=== PATIENT | female | born 1975 | race African-American/Black ===

== ENCOUNTER 2016-06-20 17:04 | Observation (INO) | payer BC, MEDICAID ==
[~2016-06-20] VITALS: Ht 165.1 cm; Wt 130.8 kg
[2016-06-20] VITALS (7 sets, daily range): BP systolic 140–177; BP diastolic 71–103; PULSE 85–97; RESP 16–18; TEMP 98.3; O2SAT 97–100
[~2016-06-20 17:04] MED LIST: ROBITUSSIN AC PO; ZITHTAB PO
--- NOTE | 2016-06-20 17:22 | PD ---
HPI Chief Complaint: Chest Pain Time Seen by Provider: 17:12 Travel History International Travel<30 days: No Contact w/Intl Traveler<30days: No Traveled to known affect area: No History of Present Illness HPI 41-year-old female here for evaluation of chest pain. The patient began expressing chest pain yesterday evening while at work. Pain initially was intermittent, moderate, worse with inspiration, described as sharp/pressure over mid chest, now more constant, still worse with inspiration, radiates to her right shoulder. She denies history of cardiac disease. Her father recently of a heart attack last week at the age of 64. She smokes about a pack of cigarettes per month. She had a DVT after a hysterectomy several years ago, not currently on anticoagulation. No fevers, chills, cough, or recent illness. No paresthesias or motor deficits. No dyspnea. PFSH Past Medical History Anemia: Yes Cancer: No Cardiovascular Problems: No Diabetes: No Diminished Hearing: No Diverticulitis: Yes Gastrointestinal Disorders: Yes Glaucoma: No Hepatitis: No Hiatal Hernia: No Hypertension: No Respiratory: No Thyroid Disease: No ?: Not Dilation and Curettage (D&C): Yes Past Surgical History Appendectomy: Yes Gynecologic Surgery: Yes (D&C, [facility] 03/10, HYSTERECTOMY) Hysterectomy: Yes Pacemaker: No Other Surgery: Yes Social History Alcohol Use: Yes (OCCASIONAL) Tobacco Use: No Substance Use: No Allergies-Medications (Allergen,Severity, Reaction): Coded Allergies: No Known Allergies (Verified , 04/23/16) Reported Meds & Prescriptions Reported Meds & Active Scripts Active [Robitussin Ac] 10 Ml PO Q6HR Zithromax Z-Geovanny (Azithromycin) 250 Mg Dspk 250 Mg PO DIRECTED 500 MG (2 tabs) day 1, then 1 tab days 2-5. Review of Systems Except as stated in HPI: all other systems reviewed are Neg Physical Exam Narrative GENERAL: Well-developed, well-nourished, comfortable, no acute distress. SKIN: Warm and dry. HEAD: Atraumatic. Normocephalic. EYES: Pupils equal and round. No scleral icterus. No injection or drainage. ENT: Mucous membranes pink and moist. NECK: Trachea midline. No JVD. CARDIOVASCULAR: Regular rate and rhythm. Distal pulses brisk and equal bilaterally. RESPIRATORY: No accessory muscle use. Clear to auscultation. Breath sounds equal bilaterally. GASTROINTESTINAL: Abdomen soft, non-tender, nondistended. MUSCULOSKELETAL: No obvious deformities. No clubbing. No cyanosis. No edema. NEUROLOGICAL: Awake and alert. No obvious cranial nerve deficits. Motor grossly within normal limits. Normal speech. PSYCHIATRIC: Appropriate mood and affect; insight and judgment normal. Data Data Last Documented VS Vital Signs Date Time Temp Pulse Resp B/P Pulse Ox O2 Delivery O2 Flow Rate FiO2 06/20/16 17:41 140/88 06/20/16 17:35 88 16 98 Room Air 06/20/16 17:08 98.3 Orders Basic Metabolic Panel (Bmp) (06/20/16 17:19) Ckmb (Isoenzyme) Profile (06/20/16 17:19) Complete Blood Count With Diff (06/20/16 17:19) D-Dimer (06/20/16 17:19) Magnesium (Mg) (06/20/16 17:19) Prothrombin Time / Inr (Pt) (06/20/16 17:19) Act Partial Throm Time (Ptt) (06/20/16 17:19) Troponin I (06/20/16 17:19) Chest, Single Ap (06/20/16 17:19) Ecg Monitoring (06/20/16 17:19) Bilateral Bp Monitoring (06/20/16 17:19) Iv Access Insert/Monitor (06/20/16 17:19) Oximetry (06/20/16 17:19) Oxygen Administration (06/20/16 17:19) Aspirin Chew (Aspirin Chew) (06/20/16 17:30) Sodium Chloride 0.9% Flush (Ns Flush) (06/20/16 17:30) Nitroglycerin Sl (Nitrostat Sl) (06/20/16 17:30) Beta Hcg (Quant/Titer) (06/20/16 17:19) Labs Laboratory Tests Test 06/20/16 17:25 White Blood Count 5.0 TH/MM3 Red Blood Count 4.64 MIL/MM3 Hemoglobin 13.1 GM/DL Hematocrit 39.6 % Mean Corpuscular Volume 85.5 FL Mean Corpuscular Hemoglobin 28.2 PG Mean Corpuscular Hemoglobin 33.0 % Concent Red Cell Distribution Width 12.8 % Platelet Count 265 TH/MM3 Mean Platelet Volume 8.8 FL Neutrophils (%) (Auto) 49.9 % Lymphocytes (%) (Auto) 40.8 % Monocytes (%) (Auto) 7.4 % Eosinophils (%) (Auto) 1.4 % Basophils (%) (Auto) 0.5 % Neutrophils # (Auto) 2.5 TH/MM3 Lymphocytes # (Auto) 2.0 TH/MM3 Monocytes # (Auto) 0.4 TH/MM3 Eosinophils # (Auto) 0.1 TH/MM3 Basophils # (Auto) 0.0 TH/MM3 CBC Comment DIFF FINAL Differential Comment Prothrombin Time 10.1 SEC Prothromb Time International 0.9 RATIO Ratio Activated Partial 24.3 SEC Thromboplast Time D-Dimer Quantitative (PE/DVT) 0.36 MG/L FEU Sodium Level 138 MEQ/L Potassium Level 3.5 MEQ/L Chloride Level 100 MEQ/L Carbon Dioxide Level 29.0 MEQ/L Anion Gap 9 MEQ/L Blood Urea Nitrogen 8 MG/DL Creatinine 0.82 MG/DL Estimat Glomerular Filtration 93 ML/MIN Rate Random Glucose 275 MG/DL Calcium Level 8.7 MG/DL Magnesium Level 2.0 MG/DL Total Creatine Kinase 70 U/L Troponin I LESS THAN 0.02 NG/ML Human Chorionic Gonadotropin, LESS THAN 1 Quant MIU/ML MDM Medical Decision Making Medical Screen Exam Complete: Yes Emergency Medical Condition: Yes Medical Record Reviewed: Yes Interpretation(s) EKG: Sinus, rate 92, normal axis, normal intervals, no acute ischemic abnormality. Differential Diagnosis ACS, pneumothorax, pericarditis, PE, pneumonia, dissection Narrative Course Initial vital signs show heart rate 94, blood pressure 152/103, pulse ox 99% on room air, oral temp of 98.3F. CBC is unremarkable. BMP is remarkable for random glucose 275, otherwise unremarkable. The patient reports that she drank a sweet tea prior to arrival. Cardiac enzymes are negative. HCG is negative. D-dimer 0.36. Chest x-ray shows no acute disease. The patient was made aware of all findings. She is resting comfortably. After receiving nitroglycerin she reports having a headache and moderate improvement in chest pain. I believe the patient is a good candidate for further cardiac evaluation in the chest pain center. She is amenable to this plan. Case discussed with hospitalist Dr. Ro who will admit the patient to her service. Diagnosis Primary Impression: Chest pain Qualified Code: R07.9 - Chest pain, unspecified type Additional Impression: Hyperglycemia Admitting Information Admitting Physician Requests: Observation Jairo Drake MD Jun 20, 2016 17:22
[2016-06-20] MEDS ORDERED: SODIUM CHLORIDE 0.9% FLUSH 5 ML FLUSH IVF PRN ×2 (17:30→18:30)
[2016-06-20] MEDS ORDERED: ASPIRIN 81 MG CHEW TAB PO ONE (17:30)
[2016-06-20] MEDS: NITROGLYCERIN 0.4 MG SL 25 TABS/BTL SL SCH ×3 (17:32→17:40)
--- NOTE | 2016-06-20 17:46 | RADHPO ---
EXAM DATE/TIME: 06/20/2016 17:40 [facility] COMPARISON: No previous studies available for comparison. INDICATIONS : Patient states chest pains that started yesterday. MEDICAL HISTORY : None. SURGICAL HISTORY : None. ENCOUNTER: Initial ACUITY: 2 days PAIN SCORE: 10/10 LOCATION: Bilateral chest FINDINGS: A single view of the chest demonstrates the lungs to be symmetrically aerated without evidence of mas s, infiltrate or effusion. The cardiomediastinal contours are unremarkable. Osseous structures are intact. CONCLUSION: No acute disease. Aaron Alvarez MD on June 20, 2016 at 17:43 Board Certified Radiologist. This report was verified electronically.
[2016-06-20 17:51] LABS: CHLORIDE 100 MEQ/L (98-107); POTASSIUM 3.5 MEQ/L (3.5-5.1); SODIUM (NA) 138 MEQ/L (136-145)
[2016-06-20 17:54] LABS: HEMATOCRIT 39.6 % (35.0-46.0); HEMO FLAGS DIFF FINAL; MEAN CELL VOLUME 85.5 FL (80.0-100.0); MEAN CORPUSCULAR HEMOGLOBIN 28.2 PG (27.0-34.0); NEUT % 49.9 % (16.0-70.0); PLATELET COUNT 265 TH/MM3 (150-450); RED BLOOD COUNT 4.64 MIL/MM3 (4.00-5.30); RED CELL DISTRIBUTION WIDTH 12.8 % (11.6-17.2)
[2016-06-20 17:55] LABS: AUTOMATED NEUTROPHIL # 2.5 TH/MM3 (1.8-7.7); BASOPHIL % 0.5 % (0.0-2.0); EOSINOPHIL # 0.1 TH/MM3 (0-0.4); EOSINOPHIL % 1.4 % (0.0-4.0); LYMPH % 40.8 % (9.0-44.0); MONO % 7.4 % (0.0-8.0)
[2016-06-20 17:56] LABS: ANION GAP 9 MEQ/L (5-15); BLOOD UREA NITROGEN 8 MG/DL (7-18)
[2016-06-20 17:59] LABS: GLOMERULAR FILTRATION RATE 93 ML/MIN (>89)
[2016-06-20 18:03] LABS: APTT (PATIENT) 24.3 SEC (24.3-30.1); INTERNATIONAL NORMALIZED RATIO 0.9 RATIO; PROTHROMBIN TIME - PATIENT 10.1 SEC (9.8-11.6)
[2016-06-20 18:04] LABS: BETA HCG QUANT LESS THAN 1 MIU/ML (0-5)
[2016-06-20 18:06] LABS: CREATINE KINASE 70 U/L (26-192)
[2016-06-20] MEDS ORDERED: ACETAMINOPHEN 500 MG CPLT PO PRN (18:30)
[2016-06-20] MEDS: MORPHINE SULFATE 4 MG/ML INJ IV PRN (19:37)
[2016-06-20] MEDS: SODIUM CHLORIDE 0.9% FLUSH 5 ML FLUSH IVF SCH (21:00)
[2016-06-20 22:09] LABS: CREATINE KINASE 64 U/L (26-192)
[2016-06-21] VITALS (12 sets, daily range): BP systolic 135–170; BP diastolic 68–94; PULSE 71–92; RESP 16–20; TEMP 96.9–98.4; O2SAT 96–100
[2016-06-21 01:43] LABS: CREATINE KINASE 61 U/L (26-192)
[2016-06-21] MEDS: MORPHINE SULFATE 4 MG/ML INJ IV PRN ×4 (02:43→16:11)
[2016-06-21] MEDS: SODIUM CHLORIDE 0.9% FLUSH 5 ML FLUSH IVF SCH ×2 (07:37→21:00)
[2016-06-21] MEDS: ASPIRIN 325 MG TAB PO SCH (08:04)
--- NOTE | 2016-06-21 08:49 | HHI.HP ---
[facility] Primary [facility] Physician No Primary Care Physician Admission Diagnosis chest pain, hyperglycemia Diagnoses: (1) Atypical chest pain Diagnosis: Principal (2) Elevated random blood glucose level Diagnosis: Principal Chief Complaint: chest pain Travel History International Travel<30 Days: No Contact w/Intl Traveler <30 Da: No Traveled to Known Affected Are: No History of Present Illness 41-year-old -Chinese female with history of anemia and diverticulitis presents with complaint of chest pain. Patient states chest pain started Monday night when she was at work. 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 She states she brushed it off and went home Monday morning and slept but then started to experience pain over the left chest which shot across to the right side. Patient describes the pain as "stabbing and burning". She states the pain is currently a 5-6/10 but states it was a 15/10 on arrival. States morphine helped alleviate the pain. She states the pain is worse with deep breaths and when sitting up and feels better when she is lying down. Painr adiates to both shoulders. She denies any associated diaphoresis, numbness or tingling, or shortness of breath. She relieved nitroglycerin but states she got a headache and chest tightening after it is unsure if it helped. She denies any fevers or chills, recent cold or cough symptoms. Denies any abdominal pain, nausea, vomiting, diarrhea. Patient denies any injury including lifting patients. Review of Systems Constitutional: DENIES: Fever, Chills, Dizziness Eyes: DENIES: Blurred vision Ears, nose, mouth, throat: DENIES: Throat pain, Ear Pain, Running Nose Respiratory: DENIES: Cough, Shortness of breath Cardiovascular: COMPLAINS OF: Chest pain Gastrointestinal: DENIES: Abdominal pain, Black stools, Bloody stools, Diarrhea , Nausea, Vomiting Genitourinary: DENIES: Dysuria Musculoskeletal: COMPLAINS OF: Joint pain (pain radiates to shoulders), Back pain Integumentary: DENIES: Rash Neurologic: COMPLAINS OF: Headache, DENIES: Paresthesias Past Family Social History Past Medical History Anemia Diverticulitis Past Surgical History Total hysterectomy 7 years ago D&C Reported Medications None Allergies: Coded Allergies: No Known Allergies (Verified , 04/23/16) Family History Father: of [place] last week at the age of 64 after being hospitalized for ruptured appendix; h/o stroke with residual right arm paralysis, several TIAs, DM. Mother: Breast cancer, at age of 56. 2 sisters and 1 brother: Diabetes Social History Occasional alcohol use. Denies history of tobacco use. Denies history of illicit drug use. Physical Exam Vital Signs Vital Signs Date Time Temp Pulse Resp B/P Pulse Ox O2 Delivery O2 Flow Rate FiO2 06/21/16 08:04 18 06/21/16 07:15 89 16 98 Room Air 06/21/16 07:05 98.4 89 16 150/86 98 Room Air 06/21/16 05:15 Room Air 21 06/21/16 05:15 90 18 148/68 96 Room Air 06/21/16 03:03 92 18 140/70 100 Room Air 06/21/16 00:47 98 21 06/20/16 23:18 97 18 144/71 99 Room Air 06/20/16 21:43 87 18 100 Room Air 06/20/16 21:40 92 18 177/98 100 Room Air 06/20/16 19:55 85 18 163/94 100 Room Air 06/20/16 19:33 18 06/20/16 17:41 140/88 06/20/16 17:35 88 16 98 Room Air 06/20/16 17:33 97 Room Air 06/20/16 17:33 97 06/20/16 17:30 89 162/81 06/20/16 17:08 98.3 94 16 152/103 99 Physical Exam GENERAL: BMI 48.1. This is a well-developed patient, in no apparent distress. SKIN: No rashes, ecchymoses or lesions. Warm and dry. HEAD: Atraumatic. Normocephalic. EYES: No scleral icterus. No injection or drainage. CHEST: Reproducible tenderness over L upper anterior chest. CARDIOVASCULAR: Regular rate and rhythm without murmurs, gallops, or rubs. RESPIRATORY: Clear to auscultation. Breath sounds equal bilaterally. No wheezes , rales, or rhonchi. GASTROINTESTINAL: Abdomen soft, non-tender, nondistended. No guarding. MUSCULOSKELETAL: No lower extremity edema bilaterally. No calf pain bilaterally. NEUROLOGICAL: Awake and alert. Motor grossly within normal limits. Five out of 5 muscle strength in bilateral arms and legs. Normal speech. PSYCHIATRIC: Normal mood and affect. Normal insight and judgement. Laboratory Laboratory Tests Test 06/20/16 06/20/16 06/21/16 17:25 21:27 01:04 White Blood Count 5.0 Red Blood Count 4.64 Hemoglobin 13.1 Hematocrit 39.6 Mean Corpuscular Volume 85.5 Mean Corpuscular Hemoglobin 28.2 Mean Corpuscular Hemoglobin 33.0 Concent Red Cell Distribution Width 12.8 Platelet Count 265 Mean Platelet Volume 8.8 Neutrophils (%) (Auto) 49.9 Lymphocytes (%) (Auto) 40.8 Monocytes (%) (Auto) 7.4 Eosinophils (%) (Auto) 1.4 Basophils (%) (Auto) 0.5 Neutrophils # (Auto) 2.5 Lymphocytes # (Auto) 2.0 Monocytes # (Auto) 0.4 Eosinophils # (Auto) 0.1 Basophils # (Auto) 0.0 CBC Comment DIFF FINAL Differential Comment Prothrombin Time 10.1 Prothromb Time International 0.9 Ratio Activated Partial 24.3 Thromboplast Time D-Dimer Quantitative (PE/DVT) 0.36 Sodium Level 138 Potassium Level 3.5 Chloride Level 100 Carbon Dioxide Level 29.0 Anion Gap 9 Blood Urea Nitrogen 8 Creatinine 0.82 Estimat Glomerular Filtration 93 Rate Random Glucose 275 Calcium Level 8.7 Magnesium Level 2.0 Total Creatine Kinase 70 64 61 Troponin I LESS THAN 0.02 LESS THAN 0.02 LESS THAN 0.02 Human Chorionic Gonadotropin, LESS THAN 1 Quant Result Diagram: 06/20/16 1725 06/20/16 1725 Imaging Last Impressions Chest X-Ray 06/20/16 1719 Signed Impressions: Service Date/Time: Monday, June 20, 2016 17:40 - CONCLUSION: No acute disease. Aaron Alvarez MD Assessment and Plan Assessment and Plan 41-year-old -Chinese female with: Atypical chest pain: Started the night before last, stabbing and burning sensation, pleuritic, but better with lying down. Chest x-ray personally interpreted with no acute disease. Troponin 3 less than 0.02. CK 3 normal. EKGs 3 personally interpreted with flattened T waves in lead III, but normal sinus rhythm and no evidence of ischemia. D-dimer negative. CBC unremarkable. -Patient received 324 mg aspirin at 1730 and received one dose of nitroglycerin SL in ED. -Patient has significant reproducible tenderness over the left chest similar to what she was feeling, likely musculoskeletal, but patient is obese with family history of heart disease. Dr. Ro informed. Stress testing was explained to the patient and although she is overweight and inactive, she would like to try the treadmill test and she feels she can safely perform this. Patient was informed that if she is unable to complete this test she will be transitioned to a nuclear stress test. ETT ordered. -Continue 325 mg daily aspirin -Nitro/morphine prn chest pain -ETT is borderline, reviewed by [facility] needle punch machine operator Dr. Scherer, states to consider Lexiscan which has been ordered. When I went back to reevaluate the patient at ~1230 she states her chest pain is now a 20/10. The nurse has administered morphine. Patient refuses nitroglycerin. 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 Patient does not have a PCP currently, last saw one 1 year ago. -Hemoglobin A1c ordered-->10.6. Patient has diabetes. -Consult clinical nurse educator -Patient advised on diet and exercise -Bedside Accu-checks and low dose SSI while hospitalized. Hold SSI if BGL <200 as patient is NPO. -Will need to start the patient on medication at discharge. DVT prevention: early ambulation Discussed Condition With patient Attending Statement The exam, history, and the medical decision-making described in the above note were completed with the assistance of the mid-level provider. I reviewed and agree with the findings presented. I attest that I had a [id number] encounter with the patient on the same day, and personally performed and documented my assessment and findings in the medical record. Mishel Kramer Jun 21, 2016 08:49 Perla Ro MD Jun 21, 2016 16:39
[2016-06-21 12:09] LABS: HEMOGLOBIN A1a 0.9 %; HEMOGLOBIN A1b 0.8 %; HEMOGLOBIN Ao 48.6 %; HEMOGLOBIN F 1.4 %; HEMOGLOBIN LA1C 1.9 %; HEMOGLOBIN P3 3.1 %
[2016-06-21] MEDS ORDERED: DEXTROSE 50% IN WATER 50 ML VIAL(D50) IV PUSH PRN (12:30)
[2016-06-21] MEDS ORDERED: GLUCAGON 1 MG/ML VIAL OTHER PRN (12:30)
[2016-06-21] MEDS ORDERED: REGADENOSON INJ 0.4 MG/5 ML SYR IV ONE (15:06)
--- NOTE | 2016-06-21 15:54 | RADHPO ---
EXAM DATE/TIME: 06/21/2016 14:41 [facility] COMPARISON: No previous studies available for comparison. INDICATIONS : Left sided chest pain for one day. Abnormal exercise treadmill test. DOSE: 35.0 mCi Tc99m Myoview at stress. 10.9 mCi Tc99m Myoview at rest. 0.4 mg Lexiscan STRESS SYMPTOMS: None. EJECTION FRACTION: 55% MEDICAL HISTORY : Diverticulitis. SURGICAL HISTORY : Hysterectomy. ENCOUNTER: Initial ACUITY: 1 day PAIN SCALE: 6/10 LOCATION: Left chest TECHNIQUE: The patient underwent pharmacologic stress with infusion of prescribed dose. Continuous ECG tracing was monitored during stress. Gated SPECT imaging was performed after stress and conventional SPECT i maging was performed at rest. The examination was performed on a SPECT/CT scanner, both attenuation and non-corrected datasets were reviewed. FINDINGS: DISTRIBUTION: The maximum perfused segment at stress is in the lateral wall near the apex. PERFUSION STUDY: There is 20% redistribution on the rest images within the lateral wall near the base. The remaining b y distribution is within normal range. GATED STUDY: There is intact wall motion and thickening without hypokinetic or dyskinetic segments. CONCLUSION: 20% redistribution involving the lateral wall near the base. I cannot exclude an area of acute ischem ia. RISK CATEGORY: Intermediate Curt Kamara Jr., MD on June 21, 2016 at 15:42 Board Certified Radiologist. This report was verified electronically.
[2016-06-21] MEDS: INSULIN ASPART SUPPLEMENTAL SCALE SQ SCH ×2 (16:45→21:14)
[2016-06-21] MEDS ORDERED: IOHEXOL 350 MG/ML 10 ML VIAL (for RAD DIAG) IV ONE (17:23)
--- NOTE | 2016-06-21 17:52 | RADHPO ---
EXAM DATE/TIME: 06/21/2016 17:04 [facility] COMPARISON: No previous studies available for comparison. INDICATIONS : Evaluate for aortic dissection. Chest pain. IV CONTRAST: 100 cc Omnipaque 350 (iohexol) IV RADIATION DOSE: 22.50 CTDIvol (mGy) MEDICAL HISTORY : Diverticulitis. SURGICAL HISTORY : Appendectomy. Hysterectomy. ENCOUNTER: Initial ACUITY: 2 days PAIN SCALE: 8/10 LOCATION: Bilateral chest TECHNIQUE: Volumetric scanning was performed using a multi-row detector CT scanner. The data was post processed with a variety of visualization algorithms including full volume maximum intensity projection, multi -planar sliding thin slab reformation, curved planar reformation, and surface rendering techniques. Using automated exposure control and adjustment of the mA and/or kV according to patient size, radiat ion dose was kept as low as reasonably achievable to obtain optimal diagnostic quality images. FINDINGS: Thoracic/abdominal aorta: The aorta is normal in caliber and course. No aneurysmal change. No dissection. No hematoma. Heart and mediastinum: The heart is normal in size. No pericardial effusion. Aorta and pulmonary arteries are normal in bartolo jeannine. No adenopathy. Lung parenchyma: Lungs are clear. No mass, infiltrate, or effusion. Other structures: Scattered colonic diverticuli. No acute inflammation observed. The liver is diffusely low in attenuat ion. Remaining visceral structures are unremarkable. A 4 cm low-density mass is seen involving the ri ght lobe of the thyroid. Left lobe is unremarkable. CONCLUSION: 1. No dissection. 2. 4 cm right thyroid nodule. This can be further assessed with an outpatient ultrasound of the thyro id. 3. Hepatic steatosis. 4. Colonic diverticulosis. Curt Kamara Jr., MD on June 21, 2016 at 17:46 Board Certified Radiologist. This report was verified electronically.
[2016-06-21] MEDS: SODIUM CHLOR 0.9% 1000 ML INJ 1,000 ML IV SCH (17:54)
[2016-06-21] MEDS ORDERED: NALOXONE HCL 0.4 MG/ML AMP IV PRN (19:15)
[2016-06-21] MEDS: ACETAMINOPHEN/HYDROcodone 325 MG/7.5 MG TAB PO PRN (21:18)
[2016-06-21] MEDS ORDERED: MORPHINE SULFATE 4 MG/ML INJ IV PRN (22:30)
[2016-06-22] VITALS (18 sets, daily range): BP systolic 104–145; BP diastolic 59–97; PULSE 64–103; RESP 17–20; TEMP 96.1–98; O2SAT 97–100
[2016-06-22] MEDS: NITROGLYCERIN 0.4 MG SL 25 TABS/BTL SL PRN ×2 (00:31→00:37)
[2016-06-22] MEDS: INSULIN ASPART SUPPLEMENTAL SCALE SQ SCH ×4 (06:18→20:32)
[2016-06-22] MEDS: SODIUM CHLOR 0.9% 1000 ML INJ 1,000 ML IV SCH ×2 (06:19→16:50)
[2016-06-22 06:25] LABS: HEMATOCRIT 35.5 % (35.0-46.0); MEAN CELL VOLUME 84.9 FL (80.0-100.0); MEAN CORPUSCULAR HEMOGLOBIN 29.1 PG (27.0-34.0); MEAN CORPUSCULAR HGB CONC 34.2 % (32.0-36.0); PLATELET COUNT 240 TH/MM3 (150-450); RED BLOOD COUNT 4.18 MIL/MM3 (4.00-5.30); RED CELL DISTRIBUTION WIDTH 12.6 % (11.6-17.2); REVIEW FLAG FINAL; WHITE BLOOD COUNT 5.8 TH/MM3 (4.0-11.0)
[2016-06-22 06:41] LABS: POTASSIUM 3.9 MEQ/L (3.5-5.1)
[2016-06-22 06:46] LABS: BICARBONATE 28.2 MEQ/L (21.0-32.0)
[2016-06-22] MEDS ORDERED: SODIUM CHLOR 0.9% 1000 ML INJ 1,000 ML IV SCH ×2 (07:42→13:31)
--- NOTE | 2016-06-22 07:47 | PD.CONS ---
HPI Service CV Consult Requested By Reason for Consult chest pain Primary Care Physician No Primary Care Physician History of Present Illness Here with recent diagnosis of type 2 diabetes for chest pain. This started Monday night at work. It has been waxing and waning since then. It is sharp stabbing precordial pain. There are no associates symptoms. It does not radiate. IT was relieved last night with SL NTG X 2. She has also had recent stressor with her father passing away. She is a never smoker and has no family h /o premature cardiac disease (Evin Walsh) Review of Systems Consitutional: DENIES: Fatigue, Fever, Chills, Weight gain, Weight loss Eyes: DENIES: Amaurosis Fugax, Change in vision HEENT: DENIES: Lightheadedness, Change in hearing Respiratory: DENIES: See HPI, Cough, Snoring, Shortness of breath, Wheezing, Sputum production Cardiovascular: COMPLAINS OF: See HPI Gastrointestinal: DENIES: Nausea, Vomiting, Change in bowel habits, Reflux, Bloody stools, Melena Genitourinary: DENIES: Urinary incontinence, Difficulty voiding Integumentary: DENIES: Rash Neurologic: DENIES: Tingling or numbness, Memory problems, Poor Balance, Stroke symptoms Musculoskeletal: DENIES: Joint pain, Muscle pain, Limited range of motion, Back pain Psychiatric: DENIES: Anxiety, Depression, Sleep disturbances Hematologic: DENIES: Bruising tendencies, Bleeding tendencies Endocrine: DENIES: Weight gain, Weight loss, Thyroid disease (Evin Walsh ) Past Family Social History Allergies: Coded Allergies: No Known Allergies (Verified , 04/23/16) Past Medical History See HPI h/o diverticulitis Past Surgical History hysterectomy appendectomy Reported Medications Reported Meds & Active Scripts Active [Robitussin Ac] 10 Ml PO Q6HR Zithromax Z-Geovanny (Azithromycin) 250 Mg Dspk 250 Mg PO DIRECTED 500 MG (2 tabs) day 1, then 1 tab days 2-5. Active Ordered Medications Current Medications Medications (Trade) Dose Ordered Sig/Kapil Route Start Time Stop Time Status Last Admin (NS Flush) 2 ml UNSCH PRN IVF 06/20/16 18:30 (NS Flush) 2 ml BID IVF 06/20/16 21:00 06/21/16 07:37 (Tylenol) 500 mg Q4H PRN PO 06/20/16 18:30 06/22/16 06:24 (Nitrostat Sl) 0.4 mg Q5M PRN SL 06/20/16 18:30 06/22/16 00:37 (Aspirin) 325 mg DAILY PO 06/21/16 09:00 06/21/16 08:04 (D50w (Vial) Inj) 25 ml UNSCH PRN IV PUSH 06/21/16 12:30 Glucagon 1 mg 1 mg UNSCH PRN OTHER 06/21/16 12:30 (NS 1000 ml Inj) 1,000 ml @ 84 mls/hr [id number] IV 06/21/16 17:00 06/22/16 06:19 (Morphine Inj) 4 mg Q4H PRN IV 06/21/16 22:30 ([place] 7.5-325 Mg) 1 tab Q4H PRN PO 06/21/16 19:15 06/21/16 21:18 (Narcan Inj) 0.4 mg UNSCH PRN IV 06/21/16 19:15 Family History noncontributory Social History see HPI denies alcohol or substance abuse (Evin Walsh) Physical Exam Vital Signs Vital Signs Date Time Temp Pulse Resp B/P Pulse Ox O2 Delivery O2 Flow Rate FiO2 06/22/16 04:00 96.1 70 20 104/59 97 06/22/16 00:42 87 122/83 06/22/16 00:37 86 130/86 06/22/16 00:31 77 139/83 06/21/16 23:00 84 06/21/16 20:56 97 21 06/21/16 20:01 91 06/21/16 20:00 97.1 86 18 151/94 97 06/21/16 16:46 18 06/21/16 16:38 97 21 06/21/16 16:30 71 06/21/16 12:00 96.9 77 20 135/75 97 06/21/16 08:00 97.3 83 20 170/91 98 Physical Exam GENERAL: Well-nourished, well-developed patient in no apparent distress. NECK: No JVD. No carotid bruit. CARDIOVASCULAR: Regular rate and rhythm. S1/S2 no murmur, rub, or gallop. RESPIRATORY: No accessory muscle use. Clear to auscultation. Breath sounds equal bilaterally. GASTROINTESTINAL: Abdomen soft, non-tender, nondistended. MUSCULOSKELETAL: Extremities without clubbing, cyanosis, or edema. Laboratory Laboratory Tests Test 06/21/16 06/22/16 08:00 06:00 Hemoglobin A1c 10.6 White Blood Count 5.8 Red Blood Count 4.18 Hemoglobin 12.1 Hematocrit 35.5 Mean Corpuscular Volume 84.9 Mean Corpuscular Hemoglobin 29.1 Mean Corpuscular Hemoglobin 34.2 Concent Red Cell Distribution Width 12.6 Platelet Count 240 Mean Platelet Volume 8.4 Sodium Level 140 Potassium Level 3.9 Chloride Level 103 Carbon Dioxide Level 28.2 Anion Gap 9 Blood Urea Nitrogen 11 Creatinine 0.68 Estimat Glomerular Filtration 116 Rate Random Glucose 244 Calcium Level 8.5 (Evin Walsh) Result Diagram: 06/22/16 0600 06/22/16 0600 Assessment and Plan Problem List: (1) Chest pain Assessment and Plan Her chest pain is atypical yet with relief with NTG and abnormal SPECT we will proceed with coronary angiogram and go from there. Start ASA, statin, BB, BUD-I as tolerated. No BUD-I or BB for now with hypotension (Evin Walsh) Assessment and Plan continued chest pain symptoms relieved with NTG. stress test high risk study. CTA negative d-dimer negative despite age, her symptoms and stress test will require us to pursue coronary angiography. transfer to [facility]. NPO (Luigi Bragg MD) Problem Qualifiers (1) Chest pain: Qualified Code: R07.9 - Chest pain, unspecified type Evin Walsh Jun 22, 2016 07:47 Luigi Bragg MD Jun 22, 2016 07:57
[2016-06-22] MEDS: ASPIRIN 325 MG TAB PO SCH (07:55)
[2016-06-22] MEDS: SODIUM CHLORIDE 0.9% FLUSH 5 ML FLUSH IVF SCH ×2 (07:55→20:33)
[2016-06-22 08:04] LABS: TOTAL BILIRUBIN ADULT 0.5 MG/DL (0.2-1.0)
[2016-06-22 08:06] LABS: INDIRECT BILIRUBIN 0.4 MG/DL (0.0-0.8)
[2016-06-22 09:46] LABS: HDL CHOLESTEROL 36.8 MG/DL (40.0-60.0)
[2016-06-22] MEDS: ATORVASTATIN 40 MG TAB PO SCH (10:22)
[2016-06-22] MEDS ORDERED: HEPARIN-NS/PF INJ 500 ML ONE (12:42)
[2016-06-22] MEDS ORDERED: HEPARIN SODIUM - IV 10,000 UNITS/10 ML VIAL ONE (12:43)
[2016-06-22] MEDS ORDERED: MIDAZOLAM HCL 2 MG/2 ML VIAL ONE (12:43)
[2016-06-22] MEDS ORDERED: IOHEXOL 350 MG/ML 50 ML BTL (for Cath Lab) OTHER ONE (13:30)
[2016-06-22] MEDS ORDERED: BACITRACIN OINT 0.9 GM PKT TOP ONE (13:45)
[2016-06-22] MEDS ORDERED: MISC INFORMATION XX ONE (13:45)
--- NOTE | 2016-06-22 16:00 | TR ---
Date Performed: 06/21/2016 Time Performed: 14:48:27 DOCTOR: Laurent Mercado DRUG LIST: CLINICAL HISTORY: CHEST PAIN ABNORMAL ETT REASON FOR TEST: ABNORMAL ETT REASON FOR ENDING: OBSERVATION: CONCLUSION: Lexiscan stress test was performed under standard four minute protocol. Radionucl[place] e was injected one minute prior to ending the test. No electrocardiographic abormalities were present to suggest ischemia. Nuclear imaging and interpretation are pending. COMMENTS:
--- NOTE | 2016-06-22 16:17 | HHI.PR ---
Subjective Remarks Patient denies cp/sob had cardiac cath stable vital signs Blood sugar noted to be very elevated Objective Vitals Vital Signs Date Time Temp Pulse Resp B/P Pulse Ox O2 Delivery O2 Flow Rate FiO2 06/22/16 16:05 103 06/22/16 15:30 97 06/22/16 15:30 98.0 82 18 143/68 97 06/22/16 14:25 76 06/22/16 12:02 81 06/22/16 11:42 70 06/22/16 11:42 97.7 72 18 120/64 100 06/22/16 08:00 96.4 77 20 139/92 97 06/22/16 04:00 96.1 70 20 104/59 97 06/22/16 00:42 87 122/83 06/22/16 00:37 86 130/86 06/22/16 00:31 77 139/83 06/21/16 23:00 84 06/21/16 20:56 97 21 06/21/16 20:01 91 06/21/16 20:00 97.1 86 18 151/94 97 06/21/16 16:46 18 06/21/16 16:38 97 21 06/21/16 16:30 71 I/O 06/21/16 06/21/16 06/21/16 06/22/16 06/22/16 06/22/16 07:00 15:00 23:00 07:00 15:00 23:00 Intake Total 0 ml 521 ml 578 ml Balance 0 ml 521 ml 578 ml Intake Oral 0 ml 240 ml IV Total 281 ml 578 ml # Voids 4 3 # Bowel Movements 2 Result Diagram: 06/22/16 0600 06/22/16 0600 Imaging Last Impressions Aorta CTA 06/21/16 1625 Signed Impressions: Service Date/Time: Tuesday, June 21, 2016 17:04 - CONCLUSION: 1. No dissection. 2. 4 cm right thyroid nodule. This can be further assessed with an outpatient ultrasound of the thyroid. 3. Hepatic steatosis. 4. Colonic diverticulosis. Curt Kamara Jr., MD Myocardial Perfusion Scan Nuc Med 06/21/16 1219 Signed Impressions: Service Date/Time: Tuesday, June 21, 2016 14:41 - CONCLUSION: 20%% redistribution involving the lateral wall near the base. I cannot exclude an area of acute ischemia. RISK CATEGORY: Intermediate Curt Kamara Jr., MD Chest X-Ray 06/20/16 171 Signed Impressions: Service Date/Time: Monday, June 20, 2016 17:40 - CONCLUSION: No acute disease. Aaron Alvarez MD Objective Remarks GENERAL: BMI 48.1. This is a well-developed patient, in no apparent distress. SKIN: No rashes, ecchymoses or lesions. Warm and dry. HEAD: Atraumatic. Normocephalic. EYES: No scleral icterus. No injection or drainage. CHEST: Reproducible tenderness over L upper anterior chest. CARDIOVASCULAR: Regular rate and rhythm without murmurs, gallops, or rubs. RESPIRATORY: Clear to auscultation. Breath sounds equal bilaterally. No wheezes , rales, or rhonchi. GASTROINTESTINAL: Abdomen soft, non-tender, nondistended. No guarding. obese abdomen. MUSCULOSKELETAL: No lower extremity edema bilaterally. No calf pain bilaterally. NEUROLOGICAL: Awake and alert. Motor grossly within normal limits. Five out of 5 muscle strength in bilateral arms and legs. Normal speech. PSYCHIATRIC: Normal mood and affect. Normal insight and judgement. Procedures Cardiac catheterization on 06/22/16 Medications and IVs Current Medications Medications (Trade) Dose Ordered Sig/Kapil Route Start Time Stop Time Status Last Admin (NS Flush) 2 ml UNSCH PRN IVF 06/20/16 18:30 (NS Flush) 2 ml BID IVF 06/20/16 21:00 06/21/16 07:37 (Tylenol) 500 mg Q4H PRN PO 06/20/16 18:30 06/22/16 06:24 (Nitrostat Sl) 0.4 mg Q5M PRN SL 06/20/16 18:30 06/22/16 00:37 (Aspirin) 325 mg DAILY PO 06/21/16 09:00 06/22/16 07:55 (D50w (Vial) Inj) 25 ml UNSCH PRN IV PUSH 06/21/16 12:30 Glucagon 1 mg 1 mg UNSCH PRN OTHER 06/21/16 12:30 (NS 1000 ml Inj) 1,000 ml @ 84 mls/hr [id number] IV 06/21/16 17:00 06/22/16 06:19 (Morphine Inj) 4 mg Q4H PRN IV 06/21/16 22:30 ([place] 7.5-325 Mg) 1 tab Q4H PRN PO 06/21/16 19:15 06/21/16 21:18 (Narcan Inj) 0.4 mg UNSCH PRN IV 06/21/16 19:15 Atorvastatin Calcium 40 mg 40 mg DAILY PO 06/22/16 09:00 06/22/16 10:22 (NS 1000 ml Inj) 1,000 ml @ 100 mls/hr Q10H IV 06/22/16 13:31 06/22/16 17:30 06/22/16 13:31 (Levemir Inj) 5 units Q12HR SQ 06/22/16 21:00 (NovoLOG INJ) 5 units TIDPC SQ 06/22/16 18:30 Urinary Catheter: No Vascular Central Line Catheter: No A/P Problem List: (1) Chest pain ICD Code: R07.9 Status: Acute Plan: Patient is sp nuclear stress test showed 20% with a distribution involving the lateral wall near the base. An area of acute ischemia could not be excluded. Patient is status post cardiac catheterization today which showed clean coronaries. Patient has been cleared by cardiology to discharge home. Lipid profile showed normal triglycerides, total cholesterol 151, LDL cholesterol 85 and HDL cholesterol 36.8. Patient started on Lipitor which she will continue up on discharge given that she is diabetic. Chest pain resolved. The patient will be discharged on aspirin and statin. ACS ruled out, chest pain likely secondary to muscular skeletal pain. (2) New onset type 2 diabetes mellitus ICD Code: E11.9 Status: Acute Plan: Normal bone A1c 10.6 the patient is a new onset diabetic. hospital educator consulted however not seen yet. Diabetes with uncontrolled hyperglycemia with blood sugars in the 200s. I will start the patient on basal bolus therapy with insulin Levemir and insulin NovoLog as prandial insulin. Continue to monitor Accu-Cheks and transition assistant with insulin alone. Consultation dietitian for advice on how to lose weight and how to manage her diet now with diabetes. (3) Obesities, morbid ICD Code: E66.01 Status: Acute Plan: Advised importance of weight loss especially in patients with diabetes. Dietitian consulted. Assessment and Plan DVT prophylaxis: SCDs. Encourage ambulation. Problem Qualifiers (1) Chest pain: Qualified Code: R07.9 - Chest pain, unspecified type Herminio Siddiqui MD Jun 22, 2016 16:17
[2016-06-22] MEDS: INSULIN ASPART 1,000 UNITS/10 ML VIAL SQ SCH (17:11)
[2016-06-22] MEDS: ACETAMINOPHEN/HYDROcodone 325 MG/7.5 MG TAB PO PRN (18:53)
[2016-06-22] MEDS: INSULIN DETEMIR 100 UNITS/ML VIAL SQ SCH (20:32)
--- NOTE | 2016-06-22 23:21 | EKG ---
Date Performed: 06/20/2016 Time Performed: 17:16:18 PTAGE: 41 years EKG: Sinus rhythm . Normal ECG PREVIOUS TRACING : 03/18/2016 09.22 Compared to prior tracing no significant change DOCTOR: Valeriy Garcia Interpretating Date/Time 06/22/2016 23:21:05
--- NOTE | 2016-06-22 23:21 | EKG ---
Date Performed: 06/20/2016 Time Performed: 23:49:52 PTAGE: 41 years EKG: Sinus arrhythmia. Normal ECG PREVIOUS TRACING : 06/20/2016 20.24 Compared to prior tracing no significant change DOCTOR: Valeriy Garcia Interpretating Date/Time 06/22/2016 23:20:06
--- NOTE | 2016-06-22 23:21 | EKG ---
Date Performed: 06/20/2016 Time Performed: 20:24:18 PTAGE: 41 years EKG: Sinus rhythm . Normal ECG PREVIOUS TRACING : 06/20/2016 17.16 Compared to prior tracing no significant change DOCTOR: Valeriy Garcia Interpretating Date/Time 06/22/2016 23:20:54
[2016-06-23] VITALS (15 sets, daily range): BP systolic 134–150; BP diastolic 90–94; PULSE 68–84; RESP 16; TEMP 97.6–98.6; O2SAT 99–100
[2016-06-23] MEDS: SODIUM CHLOR 0.9% 1000 ML INJ 1,000 ML IV SCH (04:45)
[2016-06-23] MEDS: ACETAMINOPHEN/HYDROcodone 325 MG/7.5 MG TAB PO PRN ×2 (05:16→09:20)
[2016-06-23] MEDS: INSULIN ASPART SUPPLEMENTAL SCALE SQ SCH ×2 (05:21→11:52)
[2016-06-23 05:56] LABS: AUTOMATED NEUTROPHIL # 3.4 TH/MM3 (1.8-7.7); BASOPHIL % 0.3 % (0.0-2.0); EOSINOPHIL # 0.1 TH/MM3 (0-0.4); EOSINOPHIL % 1.4 % (0.0-4.0); HEMATOCRIT 37.3 % (35.0-46.0); HEMO FLAGS DIFF FINAL; LYMPH % 33.2 % (9.0-44.0); LYMPHOCYTE # 1.9 TH/MM3 (1.0-4.8); MEAN CELL VOLUME 84.6 FL (80.0-100.0); MEAN CORPUSCULAR HGB CONC 34.3 % (32.0-36.0); MONO % 6.8 % (0.0-8.0); NEUT % 58.3 % (16.0-70.0); PLATELET COUNT 247 TH/MM3 (150-450); RED CELL DISTRIBUTION WIDTH 13.6 % (11.6-17.2); WHITE BLOOD COUNT 5.8 TH/MM3 (4.0-11.0)
[2016-06-23 06:18] LABS: BICARBONATE 27.3 MEQ/L (21.0-32.0); POTASSIUM 3.7 MEQ/L (3.5-5.1)
--- NOTE | 2016-06-23 07:21 | PD.CARD.PN ---
Subjective Subjective Remarks denies chest pain Objective Vital Signs / I&O Vital Signs Date Time Temp Pulse Resp B/P Pulse Ox O2 Delivery O2 Flow Rate FiO2 06/23/16 06:00 74 06/23/16 05:00 75 06/23/16 04:00 81 06/23/16 03:00 79 06/23/16 03:00 97.6 78 16 142/94 100 06/23/16 02:00 79 06/23/16 01:00 78 06/23/16 00:00 80 06/22/16 23:00 86 06/22/16 23:00 97.8 79 18 118/60 99 06/22/16 22:00 86 06/22/16 21:00 80 06/22/16 20:00 88 06/22/16 19:00 83 06/22/16 19:00 97.5 79 17 145/97 100 06/22/16 18:07 97 21 06/22/16 18:03 64 06/22/16 17:15 92 06/22/16 16:05 103 06/22/16 15:30 97 06/22/16 15:30 98.0 82 18 143/68 97 06/22/16 14:25 76 06/22/16 12:02 81 06/22/16 11:42 70 06/22/16 11:42 97.7 72 18 120/64 100 06/22/16 08:00 96.4 77 20 139/92 97 I/O 06/22/16 06/22/16 06/22/16 06/23/16 06/23/16 06/23/16 07:00 15:00 23:00 07:00 15:00 23:00 Intake Total 578 ml 660 ml 1720 ml Balance 578 ml 660 ml 1720 ml Intake Oral 360 ml 820 ml IV Total 578 ml 300 ml 900 ml # Voids 2 2 # Bowel Movements 1 Physical Exam GENERAL: Well-nourished, well-developed patient in no apparent distress. NECK: No JVD. No carotid bruit. CARDIOVASCULAR: Regular rate and rhythm. S1/S2 no murmur, rub, or gallop. RESPIRATORY: No accessory muscle use. Clear to auscultation. Breath sounds equal bilaterally. GASTROINTESTINAL: Abdomen soft, non-tender, nondistended. MUSCULOSKELETAL: Extremities without clubbing, cyanosis, or edema. Laboratory Laboratory Tests Test 06/23/16 05:27 White Blood Count 5.8 TH/MM3 Red Blood Count 4.40 MIL/MM3 Hemoglobin 12.8 GM/DL Hematocrit 37.3 % Mean Corpuscular Volume 84.6 FL Mean Corpuscular Hemoglobin 29.0 PG Mean Corpuscular Hemoglobin 34.3 % Concent Red Cell Distribution Width 13.6 % Platelet Count 247 TH/MM3 Mean Platelet Volume 9.0 FL Neutrophils (%) (Auto) 58.3 % Lymphocytes (%) (Auto) 33.2 % Monocytes (%) (Auto) 6.8 % Eosinophils (%) (Auto) 1.4 % Basophils (%) (Auto) 0.3 % Neutrophils # (Auto) 3.4 TH/MM3 Lymphocytes # (Auto) 1.9 TH/MM3 Monocytes # (Auto) 0.4 TH/MM3 Eosinophils # (Auto) 0.1 TH/MM3 Basophils # (Auto) 0.0 TH/MM3 CBC Comment DIFF FINAL Differential Comment Sodium Level 138 MEQ/L Potassium Level 3.7 MEQ/L Chloride Level 104 MEQ/L Carbon Dioxide Level 27.3 MEQ/L Anion Gap 7 MEQ/L Blood Urea Nitrogen 11 MG/DL Creatinine 0.82 MG/DL Estimat Glomerular Filtration 93 ML/MIN Rate Random Glucose 264 MG/DL Calcium Level 8.7 MG/DL Assessment and Plan Problem List: (1) Chest pain Assessment and Plan Coronary angiogram showed angiographically normal coronary arteries, With her diabetes she should continue statin and start BUD-I as tolerated. She can f/u with PCP as outpatient. Sign off Problem Qualifiers (1) Chest pain: Qualified Code: R07.9 - Chest pain, unspecified type Evin Walsh Jun 23, 2016 07:21
--- NOTE | 2016-06-23 07:36 | MA ---
cc: CAREN SLADE DATE 06/22/2016 PROCEDURE PERFORMED 1. Fluoroscopy with interpretation 2. Left heart catheterization 3. Left ventriculography 4. Coronary angiography METHOD The risks, benefits and alternatives discussed with the patient. The patient understood and consented to the procedure. The patient was brought into the catheterization lab and placed on the catheterization table. The right wrist was prepped and draped in a sterile fashion. The right wrist was anesthetized with 2% lidocaine. The right radial artery was cannulated. A 6-Thai, 7-cm sheath was placed without difficulty. LEFT HEART CATHETERIZATION A 6-Thai JR-5 catheter advanced across the aortic valve without difficulty. Intraoperative hemodynamics measured 120/10 mmHg. LEFT VENTRICULOGRAPHY Left ventriculography was performed right anterior oblique view using a 12 cc contrast injection with good opacification. Left ventricular ejection fraction visually estimated at 60% without regional wall motion abnormalities. CORONARY ANGIOGRAPHY 1. Left main coronary is angiographically normal. 2. Left anterior descending coronary artery has minimal luminal irregularities proximally, otherwise angiographically normal. The diagonal branch is angiographically normal. 3. Left circumflex is a large caliber size vessel giving rise to an obtuse marginal branch angiographically normal. 4. The right coronary artery is a dominant vessel giving rise to a posterior descending branch and is angiographically normal. CONCLUSIONS 1. Minimal nonobstructive coronary artery disease. 2. Normal left ventricular systolic function. PLAN The patient's symptoms are atypical. Chest pain is noncardiac. She can follow up with her primary care doctor as an outpatient. MD KAY Etienne/LUCY /1:35 PM /7:24 AM
[2016-06-23] MEDS: SODIUM CHLORIDE 0.9% FLUSH 5 ML FLUSH IVF SCH (09:18)
[2016-06-23] MEDS: INSULIN DETEMIR 100 UNITS/ML VIAL SQ SCH (09:18)
[2016-06-23] MEDS: INSULIN ASPART 1,000 UNITS/10 ML VIAL SQ SCH (09:18)
[2016-06-23] MEDS: ASPIRIN 325 MG TAB PO SCH (09:19)
[2016-06-23] MEDS: ATORVASTATIN 40 MG TAB PO SCH (09:19)
[2016-06-23] MEDS ORDERED: LIPI40TA PO (12:45)
[2016-06-23] MEDS ORDERED: INSU1INJ5 SQ (13:01)
[2016-06-23] MEDS ORDERED: NOVOLOGP2 SQ (13:01)
[2016-06-23] MEDS ORDERED: NOVOINJ3 SQ (13:01)
[2016-06-23] MEDS ORDERED: ASPI1TAB69 PO (13:01)
[2016-06-23] MEDS ORDERED: GLUCTES12 (13:09)
[2016-06-23] MEDS ORDERED: LANCETS1 MI1 (13:09)
[2016-06-23] MEDS ORDERED: GLUCKIT15 (13:09)
[2016-06-23] MEDS ORDERED: INSU1MIS15 (13:09)
--- NOTE | 2016-06-23 13:12 | HHI.DCPOC ---
Discharge Care Plan Diagnosis: (1) New onset type 2 diabetes mellitus (2) Obesities, morbid (3) Chest pain Goals to Promote Your Health * To prevent worsening of your condition and complications * To maintain your health at the optimal level Directions to Meet Your Goals Take your medications as prescribed Follow your dietary instruction Follow activity as directed Keep your appointments as scheduled Take your immunizations and boosters as scheduled If your symptoms worsen call your PCP, if no PCP go to Urgent Care Center or Emergency Room Smoking is Dangerous to Your Health. Avoid second hand smoke Call the 24-hour hour crisis hotline for domestic abuse at Herminio Siddiqui MD Jun 23, 2016 13:12
[2016-06-23] MEDS ORDERED: IOHEXOL 350 MG/ML 50 ML BTL (for Cath Lab) OTHER ONE (13:43)
--- NOTE | 2016-06-23 13:53 | HHI.DS ---
Discharge Summary Admission Date Jun 20, 2016 at 18:20 Discharge Date: Jun 23, 2016 Admitting Diagnosis chest pain, hyperglycemia (1) Chest pain ICD Code: R07.9 Diagnosis: Principal (2) New onset type 2 diabetes mellitus ICD Code: E11.9 Diagnosis: Principal (3) Obesities, morbid ICD Code: E66.01 Diagnosis: Secondary Procedures Cardiac catheterization on 06/22/16 Brief History - From Admission 41-year-old -[place] female with history of anemia and diverticulitis presents with complaint of chest pain. Patient states chest pain started Monday night when she was at work. 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 She states she brushed it off and went home Monday morning and slept but then started to experience pain over the left chest which shot across to the right side. Patient describes the pain as "stabbing and burning". She states the pain is currently a 5-6/10 but states it was a 15/10 on arrival. States morphine helped alleviate the pain. She states the pain is worse with deep breaths and when sitting up and feels better when she is lying down. Painr adiates to both shoulders. She denies any associated diaphoresis, numbness or tingling, or shortness of breath. She relieved nitroglycerin but states she got a headache and chest tightening after it is unsure if it helped. She denies any fevers or chills, recent cold or cough symptoms. Denies any abdominal pain, nausea, vomiting, diarrhea. Patient denies any injury including lifting patients. CBC/BMP: 06/23/1627 06/23/1627 Significant Findings Laboratory Tests Test 06/20/16 06/20/16 06/21/16 06/21/16 17:25 21:27 01:04 08:00 Random Glucose 275 MG/DL (74-106) Troponin I LESS THAN 0.02 LESS THAN 0.02 LESS THAN 0.02 NG/ML NG/ML NG/ML (0.02-0.05) (0.02-0.05) (0.02-0.05) Hemoglobin A1c 10.6 % (4.3-6.0) Test 06/22/16 06/23/16 06:00 05:27 Random Glucose 244 MG/DL 264 MG/DL (74-106) (74-106) Albumin 3.3 GM/DL (3.4-5.0) HDL Cholesterol 36.8 MG/DL (40.0-60.0) Imaging Last Impressions Aorta CTA 06/21/16 1625 Signed Impressions: Service Date/Time: Tuesday, June 21, 2016 17:04 - CONCLUSION: 1. No dissection. 2. 4 cm right thyroid nodule. This can be further assessed with an outpatient ultrasound of the thyroid. 3. Hepatic steatosis. 4. Colonic diverticulosis. Curt Kamara Jr., MD Myocardial Perfusion Scan Nuc Med 06/21/16 1219 Signed Impressions: Service Date/Time: Tuesday, June 21, 2016 14:41 - CONCLUSION: 20%% redistribution involving the lateral wall near the base. I cannot exclude an area of acute ischemia. RISK CATEGORY: Intermediate Curt Kamara Jr., MD Chest X-Ray 06/20/16 1719 Signed Impressions: Service Date/Time: Monday, June 20, 2016 17:40 - CONCLUSION: No acute disease. Aaron Alvarez MD PE at Discharge GENERAL: BMI 48.1. This is a well-developed patient, in no apparent distress. SKIN: No rashes, ecchymoses or lesions. Warm and dry. HEAD: Atraumatic. Normocephalic. EYES: No scleral icterus. No injection or drainage. CHEST: Reproducible tenderness over L upper anterior chest. CARDIOVASCULAR: Regular rate and rhythm without murmurs, gallops, or rubs. RESPIRATORY: Clear to auscultation. Breath sounds equal bilaterally. No wheezes , rales, or rhonchi. GASTROINTESTINAL: Abdomen soft, non-tender, nondistended. No guarding. obese abdomen. MUSCULOSKELETAL: No lower extremity edema bilaterally. No calf pain bilaterally. NEUROLOGICAL: Awake and alert. Motor grossly within normal limits. Five out of 5 muscle strength in bilateral arms and legs. Normal speech. PSYCHIATRIC: Normal mood and affect. Normal insight and judgement. Hospital Course (1) Chest pain Patient is sp nuclear stress test showed 20% with a distribution involving the lateral wall near the base. An area of acute ischemia could not be excluded. Patient is status post cardiac catheterization today which showed clean coronaries. Patient was seen and cleared by cardiology to discharge home. Lipid profile showed normal triglycerides, total cholesterol 151, LDL cholesterol 85 and HDL cholesterol 36.8. Patient started on Lipitor which she will continue up on discharge given that she is diabetic. Chest pain resolved. The patient will be discharged on aspirin and statin. ACS ruled out, chest pain likely secondary to muscular skeletal pain. (2) New onset type 2 diabetes mellitus Hemoglobin A1C 10.6 the patient is a new onset diabetic. life skills educator consulted. Diabetes with uncontrolled hyperglycemia with blood sugars in the 200s. Patient started on basal bolus therapy with insulin Levemir and insulin NovoLog as prandial insulin. Continue to monitor Accu-Cheks and assistant in nursing with insulin alone. Dietitian consulted for advice on weight loss and how to manage her diet now with diabetes. (3) Obesities, morbid Advised importance of weight loss especially in patients with diabetes. Dietitian consulted. Pt Condition on Discharge: Stable Discharge Disposition: Discharge Home Discharge Time: <= 30 minutes Discharge Instructions DIET: Follow Instructions for: As Tolerated, No Restrictions Activities you can perform: Regular-No Restrictions Other Activity Instructions: Walk 30 minutes a day 5 times a week. Follow up Referrals: PCP Follow-up - 1 Week New Medications: Aspirin (Aspirin) 81 Mg Tabdr 81 MG PO DAILY heart disease prevention #30 TAB Blood Glucose Monitoring W/Device (Glucocom Blood Glucose Mo W/Device) 1 Kit Kit 1 KIT .ROUTE DIRECTED Blood Sugar Management #1 KIT Glucocom Test Strips (Glucocom Test Strips) 1 Angelica Angelica 1 EA .ROUTE DIRECTED Blood Sugar Management #90 BOX Insulin Aspart Inj (Novolog Flexpen Inj) 300 Unit/3 Ml Pen 5 UNITS SQ TIDAC Blood Sugar Management #2 Ref 1 PEN Insulin Aspart Inj (Novolog Inj) 1,000 Unit/10 Ml Vial 2-12 UNITS SQ ACHS Max dose at bedtime ( ) units; sugars less than 70,(0) units ; sugars 150-199,(2) units; sugars 200-249,(4) units; sugars 250-299,(7) units; sugars 300-349,(10) units; sugars greater than 349,(12)units Blood Sugar Management #10 Ref 0 ML Insulin Detemir Inj (Levemir Flextouch Pen Inj) 300 unit/3 ML Pen 5 UNITS SQ Q12HR NEB Blood Sugar Management #1 Ref 1 PEN Insulin Syringe/U-100/31G X 5/16" 1 ml (Insulin Syringe/U-100/31G X 5/16" 1 ml) 1 Mis Mis 1 EA .ROUTE DIRECTED Blood Sugar Management #1 Ref 0 BOX Lancets (Lancets) 1 Mis Mis 1 EA .ROUTE DIRECTED Blood Sugar Management #1 Ref 0 BOX Atorvastatin (Lipitor) 40 Mg Tab 20 MG PO DAILY Cholesterol Management #30 TAB Discontinued Medications: Azithromycin (Zithromax Z-Geovanny) 250 Mg Dspk 250 MG PO DIRECTED 500 MG (2 tabs) day 1, then 1 tab days 2-5. Infection #1 DSPK ([Robitussin Ac]) 10 ML PO Q6HR Cough #120 Herminio Siddiqui MD Jun 23, 2016 13:53
--- NOTE | 2016-07-04 09:37 | TR ---
Date Performed: 06/21/2016 Time Performed: 11:13:53 DOCTOR: Geraldine Scherer DRUG LIST: CLINICAL HISTORY: CHEST PAIN REASON FOR TEST: Chest pain. REASON FOR ENDING: OBSERVATION: CONCLUSION: Patient tolerated RO protocol with Total Exercise Time=6:50 Maximum HI=571 % Max HR Achieved=87.0% Maximum ZM=676/80. Testing stopped secondary to exercise fatigue and lightheadednes s. Patient started test with 5-6/10 chest pain which did not worsen with exercise. Patient started to experience worsening chest pain 9-10/10 during recovery but returned back to baseline level of pain after 3 minutes recovery. Significant reproducible L anterior chest wall tenderness on exam. HR and B P appropriate repsonse to exercise. HR and BP recovering appropriately. COMMENTS:
== END 2016-06-23 13:52 | disposition home or self-care (01) ==
LOC: PHED 17:04 → PHEDA 18:20 → PHEDH 22:18 → PH3A 06-21 07:37 → HCIN 06-22 09:04
PROVIDERS: ADMIT Hospitalist; ATTEND Hospitalist
DX: R07.9 Chest pain, unspecified (principal); M25.511 Pain in right shoulder; F17.210 Nicotine dependence, cigarettes, uncomplicated; D64.9 Anemia, unspecified; K57.92 Diverticulitis of intestine, part unspecified, without perforation or abscess without bleeding; R51 Headache; E11.65 Type 2 diabetes mellitus with hyperglycemia; E66.01 Morbid (severe) obesity due to excess calories
CPT/HCPCS: 71010; 71275; 74174; 78452; 80048; 80061; 80076; 82550; 82948; 83036; 83735; 84484; 84702; 85025; 85027; 85379; 85610; 85730; 93005; 93017; 93458; 99285; A9502; C1769; C1893; G0378; J1644; J1815; J2250; J2270; J2785; J3010; J7030; Q9967

== ENCOUNTER 2016-11-07 10:25 | Emergency (ER) | payer BC, MEDICAID ==
[~2016-11-07] VITALS: Ht 165.1 cm; Wt 126.0 kg
[~2016-11-07 10:25] MED LIST changes: +ASPI1TAB69 PO; +GLUCKIT15; +GLUCTES12; +INSU1INJ5 SQ; +INSU1MIS15; +LANCETS1 MI1; +LIPI40TA PO; +NOVOINJ3 SQ; +NOVOLOGP2 SQ; -ROBITUSSIN AC PO; -ZITHTAB PO
[2016-11-07 10:26] VITALS: BP 162/98; PULSE 90; RESP 24; TEMP 97.3; O2SAT 98
[2016-11-07] MEDS ORDERED: LISI-515 PO (10:47)
[2016-11-07] MEDS ORDERED: METF500T4 PO (10:47)
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
[2016-11-07] MEDS ORDERED: KETOROLAC TROMETHAMINE 60 MG/2 ML (IM) VIAL IM ONE (11:00)
[2016-11-07] MEDS ORDERED: ORPHENADRINE INJ 60 MG/2 ML AMP IM ONE (11:00)
--- NOTE | 2016-11-07 11:32 | RADRPT ---
EXAM DATE/TIME: 11/07/2016 11:01 [facility] COMPARISON: No previous studies available for comparison. INDICATIONS : Fall. Low back pain. MEDICAL HISTORY : Diverticulitis. SURGICAL HISTORY : Appendectomy. Hysterectomy. ENCOUNTER: Initial ACUITY: 1 day PAIN SCORE: 7/10 LOCATION: Lumbar FINDINGS: No appreciable compression deformities, spondylolisthesis, or spondylolysis is seen. The disc spaces are well-maintained for technique. CONCLUSION: Unremarkable study. Maryjane Bear MD on November 07, 2016 at 11:30 Board Certified Radiologist. This report was verified electronically.
[2016-11-07] MEDS ORDERED: ROBA500T PO (11:41)
[2016-11-07] MEDS ORDERED: IBUP800T23 PO (11:41)
[2016-11-07 12:06] VITALS: BP 140/94
== END 2016-11-07 12:00 | disposition home or self-care (01) ==
LOC: NEPD 10:25
DX: M54.5 Low back pain (principal); T22.111A Burn of first degree of right forearm, initial encounter; I10 Essential (primary) hypertension; E11.9 Type 2 diabetes mellitus without complications; Z79.84 Long term (current) use of oral hypoglycemic drugs; W18.39XA Other fall on same level, initial encounter; X08.8XXA Exposure to other specified smoke, fire and flames, initial encounter
CPT/HCPCS: 72100; 96372; 99284; J1885; J2360

== ENCOUNTER 2017-05-24 05:19 | Emergency (ER) | payer BC, OTHER ==
[~2017-05-24] VITALS: Ht 165.1 cm; Wt 125.0 kg
[~2017-05-24 05:19] MED LIST changes: -ASPI1TAB69 PO; +IBUP1TAB7 PO; -INSU1INJ5 SQ; -INSU1MIS15; -LIPI40TA PO; +LISI-515 PO; +METF500T4 PO; -NOVOINJ3 SQ; -NOVOLOGP2 SQ; +ROBA500T PO
[2017-05-24 05:21] VITALS: BP 165/101; PULSE 81; RESP 18; TEMP 98.5; O2SAT 99
[2017-05-24] MEDS ORDERED: ORPHENADRINE INJ 60 MG/2 ML AMP IM ONE (06:00)
[2017-05-24] MEDS ORDERED: KETOROLAC TROMETHAMINE 60 MG/2 ML (IM) VIAL IM ONE (06:00)
[2017-05-24] MEDS ORDERED: LIDO1ADH4 TOPICAL (06:10)
[2017-05-24] MEDS ORDERED: CYCL10TA PO (06:10)
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
== END 2017-05-24 06:44 | disposition home or self-care (01) ==
LOC: NEPD 05:19
DX: M77.9 Enthesopathy, unspecified (principal); D64.9 Anemia, unspecified; E11.9 Type 2 diabetes mellitus without complications; I10 Essential (primary) hypertension; Z87.828 Personal history of other (healed) physical injury and trauma; Z87.19 Personal history of other diseases of the digestive system; Z98.890 Other specified postprocedural states
CPT/HCPCS: 96372; 99284; J1885; J2360

== ENCOUNTER 2017-08-17 14:58 | Emergency (ER) | payer BC, OTHER ==
[~2017-08-17] VITALS: Ht 165.1 cm; Wt 128.5 kg
[~2017-08-17 14:58] MED LIST changes: +CYCL10TA PO; -GLUCKIT15; -GLUCTES12; -IBUP1TAB7 PO; -LANCETS1 MI1; +LIDO1ADH4 TOPICAL; -ROBA500T PO
[2017-08-17 14:59] VITALS: BP 157/87; PULSE 86; RESP 16; TEMP 97.7; O2SAT 98
[2017-08-17] MEDS ORDERED: CLIN300C5 PO (16:24)
[2017-08-17] MEDS ORDERED: TYLETAB34 PO (16:25)
--- NOTE | 2017-08-17 16:26 | PD ---
HPI Chief Complaint: Skin Problem Time Seen by Provider: 15:47 Travel History International Travel<30 days: No Contact w/Intl Traveler<30days: No Traveled to known affect area: No History of Present Illness HPI 42-year-old female here with wound infection to left foot 1-2 weeks. She reports she had a pedicure where they used a skin exfoliate her similar to a cheese grater which caused a small wound to the left heel. The area has become increasingly more painful since that time. No fever chills. Symptom severity is moderate. Aggravated by palpation of the area and weightbearing. Slightly improved with rest. PFSH Past Medical History Anemia: Yes Cancer: No Cardiovascular Problems: Yes (htn) Patient Takes Glucophage: No Diminished Hearing: No Diverticulitis: Yes Endocrine: No Gastrointestinal Disorders: Yes Glaucoma: No Genitourinary: No Hepatitis: No Hiatal Hernia: No Hypertension: No Immune Disorder: No Medical other: Yes (ANEMIA) Musculoskeletal: No Neurologic: No Psychiatric: No Respiratory: No Immunizations Current: Yes Thyroid Disease: No Tetanus Vaccination: > 5 Years Influenza Vaccination: No ?: Not Dilation and Curettage (D&C): Yes Past Surgical History Appendectomy: Yes Gynecologic Surgery: Yes (D&C, [facility] 03/10, HYSTERECTOMY) Hysterectomy: Yes Pacemaker: No Other Surgery: Yes Social History Alcohol Use: Yes (OCCASIONAL) Tobacco Use: No Substance Use: No Allergies-Medications (Allergen,Severity, Reaction): Coded Allergies: No Known Allergies (Verified Adverse Reaction, Unknown, 08/17/17) Reported Meds & Prescriptions Reported Meds & Active Scripts Active No Active Prescriptions or Reported Medications Review of Systems Except as stated in HPI: all other systems reviewed are Neg General / Constitutional: No: Fever Physical Exam Narrative GENERAL: Alert and well-appearing 42-year-old female SKIN: Warm and dry. HEAD: Normocephalic. EYES: No injection or drainage. NECK: Supple CARDIOVASCULAR: Regular rate and rhythm RESPIRATORY: Breath sounds equal bilaterally. No accessory muscle use. GASTROINTESTINAL: nondistended. MUSCULOSKELETAL: No cyanosis, or edema. Left foot: Tender/fluctuant 1CM area to the lateral heel. No surrounding erythema. BACK: No CVA tenderness. Data Data Last Documented VS Vital Signs Date Time Temp Pulse Resp B/P (MAP) Pulse Ox O2 Delivery O2 Flow Rate FiO2 08/17/17 14:59 97.7 86 16 157/87 110 98 MDM Medical Decision Making Medical Screen Exam Complete: Yes Emergency Medical Condition: Yes Differential Diagnosis Abscess, cellulitis, wound infection Narrative Course 42-year-old female here with a small abscess to her left heel. Incision and drainage performed. Patient tolerated procedure well. She is to follow-up with her doctor for recheck in 1-2 days. Return precautions discussed. Patient verbalized understanding and agrees to plan Procedures Procedure Narrative INCISION AND DRAINAGE OF ABSCESS: The area was prepped and was sterilely draped. A subcutaneous wheal of 1 % Xylocaine with a total number [1] mL was used to anesthetize the area properly. A number 11 scalpel was used to make a 4 -mm incision across the area of the abscess. The abscess was drained, complex loculations were broken down, and irrigated with normal saline. Sterile dressing applied. Diagnosis Primary Impression: Abscess Referrals: Primary Care Physician Departure Forms: Tests/Procedures, Work Release Enter return to work date: Aug 19, 2017 Additional Instructions: Antibiotics as directed. Epson salt soaks as directed. Follow-up with her primary doctor. Return to emergency department if he develop new or worsening symptoms Scripts Acetaminophen-Codeine (Tylenol-Codeine #3) 300-30 mg Tab 1 TAB PO Q6H Y for PAIN, #10 TAB 0 Refills Prov: Ila Rees 08/17/17 Clindamycin (Clindamycin) 300 Mg Cap 300 MG PO Q6H for Infection for 10 Days, #40 CAP 0 Refills Prov: Ila Rees 08/17/17 Ila Rees Aug 17, 2017 16:26
== END 2017-08-17 16:36 | disposition home or self-care (01) ==
LOC: PHEFT 14:58
DX: L02.612 Cutaneous abscess of left foot (principal); I10 Essential (primary) hypertension
CPT/HCPCS: 10060

== ENCOUNTER 2017-08-27 20:28 | Emergency (ER) | payer BC ==
[~2017-08-27] VITALS: Ht 165.1 cm; Wt 130.5 kg
[~2017-08-27 20:28] MED LIST changes: +CLIN300C5 PO; -CYCL10TA PO; -LIDO1ADH4 TOPICAL; -LISI-515 PO; -METF500T4 PO; +TYLETAB34 PO
[2017-08-27 20:36] VITALS: BP 164/78; PULSE 91; RESP 18; TEMP 97.6; O2SAT 98
[2017-08-27] MEDS ORDERED: MAGICADU2 SWISH-SWAL (20:46)
--- NOTE | 2017-08-27 20:47 | PD ---
HPI Chief Complaint: ENT Complaint Time Seen by Provider: 20:45 Travel History International Travel<30 days: No Contact w/Intl Traveler<30days: No Traveled to known affect area: No History of Present Illness HPI 42-year-old female presents to the emergency department for evaluation of sore throat for 2 days. She is currently taking clindamycin for a foot infection. She reports having several days left of the antibiotic. No fevers or chills. No ear pain. No cough or congestion. No other symptoms or complaints. Current pain is 10/10, without radiation, aching. Mild severity. PFSH Past Medical History Anemia: Yes Cancer: No Cardiovascular Problems: Yes (htn) Diabetes: Yes (no meds currently) Patient Takes Glucophage: No Diminished Hearing: No Diverticulitis: Yes Endocrine: No Gastrointestinal Disorders: Yes Glaucoma: No Genitourinary: No Hepatitis: No Hiatal Hernia: No Hypertension: No Immune Disorder: No Medical other: Yes (ANEMIA) Musculoskeletal: No Neurologic: No Psychiatric: No Respiratory: No Immunizations Current: Yes Thyroid Disease: No Tetanus Vaccination: Unknown Influenza Vaccination: No ?: Not Dilation and Curettage (D&C): Yes Past Surgical History Appendectomy: Yes Gynecologic Surgery: Yes (D&C, [facility] 03/10, HYSTERECTOMY) Hysterectomy: Yes Pacemaker: No Other Surgery: Yes Social History Alcohol Use: Yes (OCCASIONAL) Tobacco Use: No Substance Use: No Allergies-Medications (Allergen,Severity, Reaction): Coded Allergies: No Known Allergies (Verified Adverse Reaction, Unknown, 08/27/17) Reported Meds & Prescriptions Reported Meds & Active Scripts Active Magic Mouthwash Adult Liq (Multi-Ingredient Mouthwash/Gargle) 120 Ml Susp 10 Ml SWISH-SWAL ACHS Each 5mL contains: Nystatin 200,000units, Diphenhydramine 4.25mg, Viscous Lidocaine 10mg, Aggarwal syrup 0.8 mL Clindamycin (Clindamycin HCl) 300 Mg Cap 300 Mg PO Q6H 10 Days Review of Systems Except as stated in HPI: all other systems reviewed are Neg Physical Exam Narrative GENERAL: Well-nourished, well-developed female patient, afebrile. SKIN: Focused skin assessment warm/dry. HEAD: Normocephalic. Atraumatic. ENT: Mucosa pink and moist. No erythema or exudates. No uvular edema. No uvular, palatal, or tonsillar deviation. Airway patent. Nasal turbinates appear normal without nasal blood, purulent drainage or septal hematoma. Bilateral tympanic membranes clear without erythema or perforation. EYES: No scleral icterus. No injection or drainage. NECK: Supple, trachea midline. No JVD or lymphadenopathy. CARDIOVASCULAR: Regular rate and rhythm without murmurs, gallops, or rubs. RESPIRATORY: Breath sounds equal bilaterally. No accessory muscle use. Lung sounds are clear to auscultation. GASTROINTESTINAL: Abdomen soft, non-tender, nondistended. MUSCULOSKELETAL: No cyanosis, or edema. BACK: Nontender without obvious deformity. No CVA tenderness. Data Data Last Documented VS Vital Signs Date Time Temp Pulse Resp B/P (MAP) Pulse Ox O2 Delivery O2 Flow Rate FiO2 08/27/17 20:40 (106) 08/27/17 20:36 97.6 91 18 98 Orders Orders Ed Discharge Order (08/27/17 20:47) MDM Medical Decision Making Medical Screen Exam Complete: Yes Emergency Medical Condition: Yes Medical Record Reviewed: Yes Differential Diagnosis Strep pharyngitis versus viral pharyngitis versus URI Narrative Course 42-year-old female presents to the emergency department for evaluation of sore throat for 2 days. She is currently on clindamycin for unrelated issue. She appears well on exam. She will be given prescription for Magic mouthwash. She is instructed to do warm salt water gargles, Tylenol or ibuprofen and follow-up with primary care physician. The patient was discharged in stable condition with instructions, including return instructions and follow up instructions. Diagnosis Primary Impression: Pharyngitis Qualified Codes: J02.9 - Acute pharyngitis, unspecified Referrals: Primary Care Physician call for appointment Patient Instructions: General Instructions, Pharyngitis (ED) Additional Instructions: Continue clindamycin as directed until gone. Take Magic mouthwash as directed. Warm salt water gargles. Tylenol/ibuprofen [id number] as needed. Follow-up with a primary care physician. Return to the emergency department for any acute worsening of symptoms. Med/Other Pt SpecificInfo: Prescription(s) given Scripts Jdojwszq-Wkzcvajcymewiwp-Ojzvmixnu Liq (Magic Mouthwash Adult Liq) 120 Ml Susp 10 ML SWISH-SWAL ACHS for Mouth sores, #120 ML 0 Refills Each 5mL contains: Nystatin 200,000units, Diphenhydramine 4.25mg, Viscous Lidocaine 10mg, Aggarwal syrup 0.8 mL Prov: Danae Villalobos 08/27/17 Disposition: 01 DISCHARGE HOME Condition: Stable Danae Villalobos Aug 27, 2017 20:47
== END 2017-08-27 20:55 | disposition home or self-care (01) ==
LOC: PHEFT 20:28
DX: J02.9 Acute pharyngitis, unspecified (principal); D64.9 Anemia, unspecified; I10 Essential (primary) hypertension; E11.9 Type 2 diabetes mellitus without complications; Z79.899 Other long term (current) drug therapy
CPT/HCPCS: 99283

== ENCOUNTER 2018-01-08 15:14 | Observation (INO) ==
[2018-01-08] MEDS ORDERED: Aspirin 325 MG Tablet PO ONE (16:17)
--- NOTE | 2018-01-08 16:39 | ED ---
HPI General Chief Complaint: Chest Pain Stated Complaint: chest pain Time Seen by Provider: 01/08/18 16:05 Source: patient Mode of arrival: ambulatory Limitations: no limitations History of Present Illness HPI narrative: Patient is a 42 [id number] that presents with a CC of " chest pain" that started 3-4 days ago. The patient describes that the pain starts substernally and radiates to both the right and left arms. The patient states that the pain lasts from 1-2 hours. She describes the pain as a "burning " sensation and rates the pain a 20/10 on a pain scale with 1 representing no pain and 10 representing the worst pain. The patient states that the pain has woken her up from sleep.The patient has taken Tylenol and states that this has alleviated the pain. The patient denies any aggravating factors. The patient does not identify a specific time of day that makes the symptoms worse. The patient states that she experiences SOB with the pain and she states that sometimes her heart feels like it is "beating a mile a minute." She is also experiencing nausea and vomiting which started last night. She is still experiencing nausea and vomiting today. The patient also reports diaphoresis during the episodes of chest pain. Complete Quality Measures for STEMI Alert Patients Related Data Allergies Allergy/AdvReac Type Severity Reaction Status Date / Time No Known Allergies Allergy Verified 01/08/18 15:58 Review of Systems ROS: all other systems reviewed are negative [facility] Medical History Medical History Prediabetes (Acute) Social History Social History Substance History: No History of Abuse Second Hand Smoke Exposure: Yes Smoking Status: Former smoker Tobacco Type: Cigarettes How Often Do You Have a Drink Containing Alcohol: 2 to 3 times a week Recent Travel in [facility] within the Last 8 Weeks: No Recent Out of Country Travel within the Last 8 Weeks: No Course Initial Documented Vital Signs Temperature 97.5 F L 01/08/18 15:47 Pulse Rate 95 H 01/08/18 15:47 Respiratory Rate 19 01/08/18 15:47 Blood Pressure 160/91 H 01/08/18 15:47 Pulse Oximetry 96 01/08/18 15:47 Last Documented Vital Signs Temperature 97.5 F L 01/08/18 15:47 Pulse Rate 95 H 01/08/18 16:58 Respiratory Rate 18 01/08/18 16:58 Blood Pressure 156/74 H 01/08/18 16:58 Pulse Oximetry 99 01/08/18 16:58 Medical Decision Making VENKAT Attestation VENKAT supervised visit: Yes Attestation: I, Dr. Goldstein, have reviewed the advance practice practitioner's documentation and am in agreement, met with the patient face to face, made the diagnosis, and the medical decision making was done by me. *My assessment and Findings: Patient seen and evaluated with PA, please see PA notes for further details. Here for left-sided chest and shoulder pains, negative EKG, lab work fairly unremarkable, planning for chest pain center admission to rule out cardiac disease. MDM Narrative Medical decision making narrative: 42-year-old female that presents to the ED for evaluation of chest pain. Patient was properly examined and was found to have signs and symptoms concerning for ACS. Labs and imaging order. Labs and imaging were essentially unremarkable. No sign of ST elevations or signs of acute ischemia at this time. patient was given aspirin nitroglycerin with improvement of symptoms. At this time accommodations for admission to the chest pain center as patient does have risk factors. Patient agrees with this. Patient was admitted to chest pain center by me. My attending Dr connors agrees with plan. Medical Screen Exam Complete: Yes Emergency Medical Condition: Yes Medical Records Medical records reviewed: Yes I reviewed the patient's medical records. Lab Data Lab results reviewed: Yes I reviewed the patient's lab results. Lab results narrative: troponin negative CKMB negative lipase WNL D-dimmer negative Result diagrams: 01/08/18 16:34 01/08/18 16:34 Lab Results 01/08/18 01/08/18 01/08/18 Range/Units 16:34 16:34 16:34 WBC 7.3 (4.0-11.0) th/mm3 RBC 4.47 (4.00-5.30) mil/mm3 Hgb 13.3 (11.6-15.3) gm/dL Hct 38.7 (35.0-46.0) % MCV 86.7 (80.0-100.0) fL MCH 29.8 (27.0-34.0) pg MCHC 34.3 (32.0-36.0) % RDW 13.0 (11.6-17.2) % Plt Count 242 (150-450) th/mm3 MPV 8.8 (7.0-11.0) fL Neut % (Auto) 53.6 (16.0-70.0) % Lymph % (Auto) 38.4 (9.0-44.0) % [place] % (Auto) 5.9 (0.0-8.0) % Eos % (Auto) 1.6 (0.0-4.0) % Baso % (Auto) 0.5 (0.0-2.0) % Neut # (Auto) 3.9 (1.8-7.7) th/mm3 Lymph # (Auto) 2.8 (1.0-4.8) th/mm3 [place] # (Auto) 0.4 (0.0-0.9) th/mm3 Eos # (Auto) 0.1 (0.0-0.4) th/mm3 Baso # (Auto) 0.0 (0.0-0.2) th/mm3 WBC Differential . Differential Comment Auto diff final D-Dimer Quant (PE/DVT) 0.27 (0.00-0.50) mg/L FEU Sodium 136 (136-145) meq/L Potassium 4.0 (3.5-5.1) meq/L Chloride 100 (98-107) meq/L Carbon Dioxide 28.1 (21.0-32.0) meq/L Anion Gap 8 (5-15) meq/L BUN 12 (7-18) mg/dL Creatinine 0.89 (0.50-1.00) mg/dL Estimated GFR 85 L (>89) mL/min Random Glucose 279 H (74-106) mg/dL Calcium 8.9 (8.5-10.1) mg/dL Total Bilirubin 0.3 (0.2-1.0) mg/dL AST 24 (15-37) U/L ALT 32 (10-53) U/L Alkaline Phosphatase 89 (45-117) U/L Troponin I Less than 0.02 L (0.02-0.05) ng/mL Total Protein 8.3 H (6.4-8.2) g/dL Albumin 3.8 (3.4-5.0) g/dL Lipase 116 (73-393) U/L Imaging Data Attestation: I personally reviewed and interpreted this imaging study as follows : Radiologist's impression: Chest X-Ray 01/08/18 16:17 CONCLUSION: Negative examination. ECG Data Attestation: I personally reviewed and interpreted this ECG as follows: Interpretation: EKG shows sinus rhythm with no sign of acute ischemia or arrhythmia. Ventricular rate of 94. AR interval of 162 ms Discharge Plan Discharge Disposition Patient Disposition: 30 Still Patient Discharge Details Diagnosis: Chest pain Physicians Team ED Provider: Yvette Goldstein ED Midlevel Provider: Tayo Kramer Primary Care Provider: Deion Underwood V Discharge Instructions Patient Printed Instructions: Chest Pain (ED) Status ED Status: With Doctor
--- NOTE | 2018-01-08 16:39 | XR ---
EXAM DATE: 01/08/2018 4:37 PM EDT AGE/SEX: 42 years / Female INDICATIONS: Anterior chest pain and some shortness of breath over past few days CLINICAL DATA: This is the patient's initial encounter. Patient reports that signs and symptoms have been present for 3 days and indicates a pain score of 6/10. MEDICAL/SURGICAL HISTORY: None. None. COMPARISON: [facility], CHEST SINGLE AP, 06/20/2016. . FINDINGS: A single AP view of the chest demonstrates the lungs to be symmetrically aerated without evidence of mass, infiltrate or effusion. The cardiomediastinal contours are unremarkable. Osseous structures a re intact. CONCLUSION: Negative examination. Electronically signed by: Curt Kamara MD 01/08/2018 4:38 PM EDT
[2018-01-08 17:14] LABS: Baso % (Auto) 0.5 % (0.0-2.0); Eos # (Auto) 0.1 th/mm3 (0.0-0.4); Eos % (Auto) 1.6 % (0.0-4.0); Hematocrit 38.7 % (35.0-46.0); Hemoglobin 13.3 gm/dL (11.6-15.3); Lymph # (Auto) 2.8 th/mm3 (1.0-4.8); Lymph % (Auto) 38.4 % (9.0-44.0); Mean Corpuscular HGB Conc 34.3 % (32.0-36.0); Mean Corpuscular Hemoglobin 29.8 pg (27.0-34.0); Mean Corpuscular Volume 86.7 fL (80.0-100.0); Mean Platelet Volume 8.8 fL (7.0-11.0); Mono # (Auto) 0.4 th/mm3 (0.0-0.9); Mono % (Auto) 5.9 % (0.0-8.0); Neut # (Auto) 3.9 th/mm3 (1.8-7.7); Neut % (Auto) 53.6 % (16.0-70.0); Platelet Count 242 th/mm3 (150-450); Red Blood Count 4.47 mil/mm3 (4.00-5.30); White Blood Count 7.3 th/mm3 (4.0-11.0)
[2018-01-08 17:37] LABS: Alkaline Phosphatase 89 U/L (45-117); Total Protein 8.3 g/dL (6.4-8.2)
[2018-01-08 17:38] LABS: Alanine Aminotransferase 32 U/L (10-53); Albumin 3.8 g/dL (3.4-5.0); Anion Gap 8 meq/L (5-15); Aspartate Aminotransferase 24 U/L (15-37); Blood Urea Nitrogen 12 mg/dL (7-18); Calcium 8.9 mg/dL (8.5-10.1); Carbon Dioxide 28.1 meq/L (21.0-32.0); Chloride 100 meq/L (98-107); Glomerular Filtration Rate 85 mL/min (>89); Glucose,Random 279 mg/dL (74-106); Lipase 116 U/L (73-393); Sodium 136 meq/L (136-145)
[2018-01-08] MEDS ORDERED: Morphine Inj 4 MG/ML Vial IV.PUSH ONE (17:46)
[2018-01-08] MEDS ORDERED: Acetaminophen 500 MG Tablet PO PRN (17:56)
[2018-01-08 19:38] LABS: Creatine Kinase 116 U/L (26-192)
[2018-01-08 19:55] LABS: Creatine Kinase MB 1.1 ng/mL (0.5-3.6)
[2018-01-08 20:16] LABS: Creatine Kinase 90 U/L (26-192)
[2018-01-08 23:56] LABS: Creatine Kinase 129 U/L (26-192)
--- NOTE | 2018-01-09 09:19 | P.HPCA ---
History of Present Illness Primary Care Physician: Deion Underwood MD Chief Complaint: Chest pain History of Present Illness: This is a 42-year-old female without history of hypertension, hyperlipidemia, diabetes, CAD that presents to ED to evaluated for chest discomfort patient states she has had 3 days of intermittent left-sided chest discomfort that will radiate to different areas. Describes it as an ache. Occasional shortness of breath with the symptoms. Denies nausea or diaphoresis. Upon reviewing records , patient had been admitted in June 2016 for chest pain. Had an abnormal stress test followed by a heart catheterization that was essentially normal. Has not followed with cardiology since. Denies hypertension, hyperlipidemia, diabetes, and CAD. Denies family history of CAD. Non-smoker. - Diagnosis (1) Chest pain (2) Hyperglycemia Review of Systems General: Patient denies fevers, chills, and recent travel. HEENT: Patient denies headache, sore throat, difficulty swallowing. Cardiovascular: Has the chest discomfort as mentioned above. Denies sensation of heart beating rapidly or irregularly. No syncope. Denies diaphoresis per Respiratory: Occasional shortness of breath. Denies inspirational chest discomfort. Denies coughing wheezing or hemoptysis. GI: Patient denies nausea, vomiting, diarrhea, abdominal pain, bloody stools. Musculoskeletal: Patient denies joint pain or edema. Denies calf pain or edema. Neurovascular: Patient denies numbness, tingling, weakness in extremities. Denies headache. Endocrine: Denies polyuria and polydipsia. Hematologic: Denies easy bruising. Skin: Denies rash or itching. [facility] - History History Provided By: Patient - Medical History Medical History: Medical History (Last Updated 01/08/18 @ 16:56 by Ji Peterson) Prediabetes - Tobacco History Second Hand Smoke Exposure: Yes Tobacco Use In Past 30 Days: Yes Smoking Status: Former smoker Tobacco Type: Cigarettes - Alcohol History How Often Do You Have a Drink Containing Alcohol: 2 to 3 times a week - Substance Use History Substance History: No History of Abuse - Travel History Recent Travel in the [place] Within the Last 8 Weeks: No Recent Travel Out of the Country Within the Last 8 Weeks: No - Immunization History Tetanus Immunization: Unsure Hx Influenza Vaccine This Season: No Medications and Allergies Active Medications: Active Medications Acetaminophen (Tylenol) 500 mg PO Q4H PRN PRN Reason: HEADACHE Hydrocodone Bitart/Acetaminophen ([place] 7.5/325) 1 tab PO Q4H PRN PRN Reason: PAIN SCALE 1 TO 7 Sodium Chloride (Ns Flush) 2 ml IV.FLUSH UNSCH PRN PRN Reason: FLUSH AFTER USING IV ACCESS Sodium Chloride (Ns Flush) 2 ml IV.FLUSH BID NIKKI Last Admin: 01/09/18 08:45 Dose: 2 ml Sodium Chloride (Ns Flush) 2 ml IV.FLUSH PRN PRN PRN Reason: FLUSH AFTER USING IV ACCESS Allergies Allergy/AdvReac Type Severity Reaction Status Date / Time No Known Allergies Allergy Verified 01/08/18 15:58 Home Medications Medication Instructions Recorded Confirmed Type No Known Home Medications 01/08/18 01/08/18 History Exam Vital signs: Vital Signs 01/08/18 15:47 01/08/18 15:58 01/08/18 16:58 Temperature 97.5 F L Pulse Rate 95 H 96 H 95 H Respiratory Rate 19 18 18 Blood Pressure 160/91 H 154/78 H 156/74 H Pulse Oximetry 96 98 98 01/08/18 18:12 01/08/18 19:11 01/08/18 20:11 Temperature Pulse Rate 90 Respiratory Rate 18 Blood Pressure 115/64 Pulse Oximetry 98 98 01/08/18 22:00 01/08/18 23:22 01/08/18 23:27 Temperature 97.9 F 97.6 F Pulse Rate 97 H 94 H Respiratory Rate 16 16 Blood Pressure 135/80 140/70 Pulse Oximetry 96 98 97 01/09/18 04:00 01/09/18 07:35 Temperature 97.7 F 97.7 F Pulse Rate 74 84 Respiratory Rate 16 16 Blood Pressure 142/82 H 128/85 Pulse Oximetry 98 96 Intake & Output 01/08/18 01/09/18 01/09/18 18:59 06:59 18:59 Weight 127.006 kg Other: # Voids 1 Date of Last Bowel Movement 01/08/18 Weight On Admission 127.006 kg Narrative: GENERAL: This is a well-nourished, well-developed patient, in no apparent distress. Patient speaks in clear complete sentences. Patient is pleasant. HEENT: Head is atraumatic and normocephalic. Neck is supple without lymphadenopathy and trachea is midline. No JVD or carotid bruits. CARDIOVASCULAR: Regular rate and rhythm without murmurs, gallops, or rubs. RESPIRATORY: Clear to auscultation. Breath sounds equal bilaterally. No wheezes , rales, or rhonchi. Chest wall is nontender. No use of accessory muscles. GASTROINTESTINAL: Abdomen is nontender, nondistended. Abdomen soft. No obvious pulsatile mass or bruit. No CVA tenderness. Strong femoral pulses bilaterally. Normal bowel sounds in all quadrants. MUSCULOSKELETAL: Patient is moving upper and lower extremities freely. No calf tenderness or edema, no Homans sign. Strong pulses in upper and lower extremities. NEUROLOGICAL: Patient is alert and oriented. Cranial nerves 2-12 are grossly intact. No focal deficits and speech is clear. SKIN: No rash and turgor is normal. Results 01/08/18 16:34 01/08/18 16:34 Cardiac Enzymes 01/08/18 01/08/18 01/08/18 Range/Units 16:34 16:34 19:23 AST 24 (15-37) U/L CK-MB (CK-2) 1.1 (0.5-3.6) ng/mL Troponin I Less than 0.02 L Less than 0.02 L (0.02-0.05) ng/mL 01/08/18 Range/Units 23:00 AST (15-37) U/L CK-MB (CK-2) Less than 1.0 (0.5-3.6) ng/mL Troponin I Less than 0.02 L (0.02-0.05) ng/mL CBC 01/08/18 Range/Units 16:34 WBC 7.3 (4.0-11.0) th/mm3 RBC 4.47 (4.00-5.30) mil/mm3 Hgb 13.3 (11.6-15.3) gm/dL Hct 38.7 (35.0-46.0) % Plt Count 242 (150-450) th/mm3 Neut # (Auto) 3.9 (1.8-7.7) th/mm3 Lymph # (Auto) 2.8 (1.0-4.8) th/mm3 [place] # (Auto) 0.4 (0.0-0.9) th/mm3 Eos # (Auto) 0.1 (0.0-0.4) th/mm3 Baso # (Auto) 0.0 (0.0-0.2) th/mm3 Comprehensive Metabolic Panel 01/08/18 Range/Units 16:34 Sodium 136 (136-145) meq/L Potassium 4.0 (3.5-5.1) meq/L Chloride 100 (98-107) meq/L Carbon Dioxide 28.1 (21.0-32.0) meq/L BUN 12 (7-18) mg/dL Creatinine 0.89 (0.50-1.00) mg/dL Calcium 8.9 (8.5-10.1) mg/dL AST 24 (15-37) U/L ALT 32 (10-53) U/L Alkaline Phosphatase 89 (45-117) U/L Total Protein 8.3 H (6.4-8.2) g/dL Albumin 3.8 (3.4-5.0) g/dL Intake and Output 01/08/18 01/09/18 01/09/18 22:59 06:59 14:59 Other: # Voids 1 Date of Last Bowel Movement 01/08/18 Weight 127.006 kg Weight On Admission 127.006 kg EKG interpretations - EKG EKG shows: sinus rhythm (EKGs a sinus rhythm without significant ST segment depressions or elevations.) Caprini VTE Risk Assessment Caprini VTE Risk Assessment: No/Low Risk (score <= 1) Caprini Risk Assessment Model: Point Value = 1 Point Value = 2 Point Value = 3 Point Value = 5 Age 41-60 Minor surgery BMI > 25 kg/m2 Swollen legs Varicose veins or History of unexplained or recurrent spontaneous Oral contraceptives or hormone replacement Sepsis (< 1 month) Serious lung disease, including pneumonia (< 1 month) Abnormal pulmonary function Acute myocardial infarction Congestive heart failure (< 1 month) History of inflammatory bowel disease Medical patient at bed rest Age 61-74 Arthroscopic surgery Major open surgery (> 45 min) Laparoscopic surgery (> 45 min) Malignancy Confined to bed (> 72 hours) Immobilizing plaster cast Central venous access Age >= 75 History of VTE Family history of VTE Factor V Leiden Prothrombin [id number] Lupus anticoagulant Anticardiolipin antibodies Elevated serum homocysteine Heparin-induced thrombocytopenia Other congenital or acquired thrombophilia Stroke (< 1 month) Elective arthroplasty Hip, pelvis, or leg fracture Acute spinal cord injury (< 1 month) Prophylaxis Regimen: Total Risk Factor Score Risk Level Prophylaxis Regimen 0-1 Low Early ambulation 2 Moderate Order ONE of the following: *Sequential Compression Device (SCD) *Heparin 5000 units SQ BID 3-4 Higher Order ONE of the following medications: *Heparin 5000 units SQ TID *Enoxaparin/Lovenox 40 mg SQ daily (WT < 150 kg, CrCl > 30 mL/min) *Enoxaparin/Lovenox 30 mg SQ daily (WT < 150 kg, CrCl > 10-29 mL/min) *Enoxaparin/Lovenox 30 mg SQ BID (WT < 150 kg, CrCl > 30 mL/min) AND/OR *Sequential Compression Device (SCD) 5 or more Highest Order ONE of the following medications: *Heparin 5000 units SQ TID (Preferred with Epidurals) *Enoxaparin/Lovenox 40 mg SQ daily (WT < 150 kg, CrCl > 30 mL/min) *Enoxaparin/Lovenox 30 mg SQ daily (WT < 150 kg, CrCl > 10-29 mL/min) *Enoxaparin/Lovenox 30 mg SQ BID (WT < 150 kg, CrCl > 30 mL/min) AND *Sequential Compression Device (SCD) Assessment and Plan - Assessment (1) Chest pain Code(s): R07.9 - Chest pain, unspecified Status: Acute (2) Hyperglycemia Code(s): R73.9 - Hyperglycemia, unspecified Status: Acute - Plan * Chest pain: Patient had serial cardiac enzymes and EKGs for ruling out purposes. She was seen by Dr. Scherer of cardiology in the chest pain center. Her symptoms seem atypical and with history of such normal heart catheterization 06/17, patient will be discharged home for further cardiac workup with instructions to follow-up PCP. Return to ED for interval issues. * Hyperglycemia: Patient has been advised to follow-up with her PCP in the next 3-5 days for further evaluate of possible diabetes. Patient is stable at this time. She is agreeable to this plan. (1) Chest pain Qualifiers: Chest pain type: unspecified Qualified Code(s): R07.9 - Chest pain, unspecified
--- NOTE | 2018-01-09 13:42 | ECG ---
Date Performed: 01/08/2018 Time Performed: 16:56:36 PTAGE: 42 years EKG: Sinus rhythm NORMAL ECG Since the PREVIOUS TRACING , no significant change noted PREVIOUS TRACIN06/20/2016 23.49 DOCTOR: Suleman Gordon Interpretating Date/Time 01/09/2018 13:41:50
--- NOTE | 2018-01-09 13:43 | ECG ---
Date Performed: 01/08/2018 Time Performed: 20:08:22 PTAGE: 42 years EKG: Sinus rhythm NORMAL ECG Since the PREVIOUS TRACING , no significant change noted PREVIOUS TRACIN01/08/2018 16.56 DOCTOR: Suleman Gordon Interpretating Date/Time 01/10/2018 06:31:30
--- NOTE | 2018-01-09 16:52 | ECG ---
Date Performed: 01/08/2018 Time Performed: 22:16:55 PTAGE: 42 years EKG: Sinus rhythm NORMAL ECG Since PREVIOUS TRACING , no significant change noted PREVIOUS TRACIN01/08/2018 20.08 DOCTOR: Geraldine Scherer Interpretating Date/Time 01/09/2018 16:50:20
== END 2018-01-09 10:09 | disposition home or self-care (01) ==
LOC: NEPC 15:14 → NEDA 15:14 → NEPFCDU 19:04
PROVIDERS: ADMIT Internal Medicine Cardiovascular Disease; ATTEND Internal Medicine Cardiovascular Disease
DX: F17.210 Nicotine dependence, cigarettes, uncomplicated; R07.9 Chest pain, unspecified; R73.9 Hyperglycemia, unspecified